=== PATIENT | female | born 1955 | race Caucasian/White ===

== ENCOUNTER → 2022-11-25 15:06 | Outpatient (CLI) | payer MEDICARE, SELFPAY ==
--- NOTE | ~2022-11-25 | MR_ITS ---
EXAMINATION: MR lumbar spine wo con DATE: 11/25/2022 15:48 INDICATION: Low back pain. Lumbar spondylosis. TECHNIQUE: Magnetic resonance imaging (MRI) of the lumbar spine was performed without intravenous con trast. Sequences included sagittal T2-weighted FSE, sagittal T2-weighted FS FSE, sagittal T1-weighted FSE, and axial T2-weighted FSE. COMPARISON: Lumbar spine MRI 05/09/2018 FINDINGS: There is 3 mm retrolisthesis of L3 on L4 and 4 mm anterolisthesis of L4 on L5. Vertebral klarissa dy heights are normal. There is severely decreased disc at L3-L4, mildly decreased disc height at L4- L5, and severely decreased disc height at L5-S1. The distal spinal cord signal intensity is normal. T he conus medullaris is at T12. The following disc levels are specifically discussed: L1-L2: There is a central protrusion. There is mild bilateral facet joint osteoarthritis. There is no neural foraminal stenosis. There is mild central canal stenosis. L2-L3: The disc is bulging. There is mild right and moderate left facet joint osteoarthritis. There i s mild bilateral neural foraminal stenosis. There is mild central canal stenosis. L3-L4: The disc is bulging. There is severe right and moderate left facet joint osteoarthritis. There is moderate right and mild left neural foraminal stenosis. There is mild central canal stenosis. L4-L5: The disc is bulging and has an annular fissure. There is severe bilateral facet joint osteoart hritis. There is mild bilateral neural foraminal stenosis. There is mild central canal stenosis. L5-S1: The disc is bulging and has an annular fissure. There is severe bilateral facet joint osteoart hritis. There is mild bilateral neural foraminal stenosis. There is mild central canal stenosis. IMPRESSION: 1. Severe lumbar spondylosis, worsened from 05/09/2018. Reviewed, dictated and finalized at location A.
== END ==
PROVIDERS: PCP Family Medicine; Visit Provider Nurse Practitioner Adult Health
DX: M47.816 Spondylosis without myelopathy or radiculopathy, lumbar region (principal)
CPT/HCPCS: 72148

== ENCOUNTER 2024-12-05 11:00 | Outpatient (RCR) | payer MEDICARE, SELFPAY ==
--- NOTE | 2024-09-06 17:32 | PTOPEVAL1 ---
Assessment and note entered by Miriam Rosas, PT Evaluation Information Assessment Status Evaluation Diagnosis low back pain unspec, right sided sciatica ICD-10 Condition Codes (PT) Difficulty Walking R26.2,Abnormalities of gait and mobility R26.9,Weakness R53.1,Encounter for other orthopedic aftercare Z47.89 Subjective Information Has gone to chiropractor for years for her back and neck. 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 Has had to use a cane since her gluteus surgery. States sitting too long there is a certain area of the back that is bothersome and in another chair other areas. [employer] put her on naproxen from meloxicam which was on for years due to arthritis. Has had shots in her back from multiple practitioners with most recent being two years ago from neuro surgeon. Pt reports afternoon after saw her primary, noticed a little tingling RLE but hasn't had it return since. Pt reports has pain in the back but goes down into hip. States will burn and hurt where she pushes on it. Can walk/stand an hour or so before having to sit. Reported Pain Level Pain Score 1: Self Report Assessment PT Clinical Summary Pt presents with low back pain and right sided sciatica. She has significant MRI findings throughout lumbar spine for degenerative changes and disc bulges among other findings. Pt also has had significant surgical intervention of the right gluteal complex within the last three years greatly effecting her strength and thus support of lumbar spine. She also reports leg length discrepancy but has not address with heel lifts or shoe alterations, and demonstrates possible pelvic alignment deficit wiht upslip as well today . Pt will greatly benefit from therapy to address deficits, improve pain and function within realistic expectations. Plan of Care Interventions Electrical Stimulation,Gait Training,Hot Pack/Cold Pack,Manual Therapy,Neuro Re-education,Patient/ Caregiver Education,Prosthetic Training, Therapeutic Activities,Therapeutic Exercise,Self- Care/Home Management,Ultrasound,Other Other Interventions Taping, bracing PT Services Indicated Yes Treatment Frequency and 2x weekly x 20 visits Duration These treatments will address the objective and functional deficits as defined above. The patient will be advanced safely and appropriately in order for the patient to progress towards his/her prior level of function. Additional exercises will be introduced and as well as a comprehensive home exercise program upon discharge, if needed, ?to ensure carryover of functional gains achieved in the clinic. This treatment plan has been reviewed and agreement upon by the patient.
--- NOTE | 2024-09-06 17:32 | OPREHPOC ---
Outpatient Therapy Plan of Care This is a Multidisciplinary Plan of Care that may contain components documented by all disciplines (PT, OT, and ST.) PT Problem 1 PT Problem #1 Knowledge Deficit PT Goal 1 Goal / Goal Update Pt will be independent in HEP Pt will verbalize understanding of diagnosis and prognosis Target Visit 10 PT Problem 2 PT Problem #2 Pain PT Goal 1 Goal / Goal Update Pt will report lowest pain rating at 0/10 to show improvement in overall discomfort Target Visit 10 PT Goal 2 Goal / Goal Update Pt will report greatest pain level at 4/10 or less to improve ADLs and activities Target Visit 20 PT Problem 3 PT Problem #3 Impaired Strength PT Goal 1 Goal / Goal Update Pt will demonstrate gluteus kimberli and medius strength RLE of 3/5 without compensatory mechanisms Target Visit 10 PT Goal 2 Goal / Goal Update Pt will demonstrate 3+/5 gluteus medius and kimberli strength to improve overal hip and lumbopelvic stability Target Visit 20
--- NOTE | 2024-10-20 08:32 | PTOPPROG ---
Assessment and note entered by Miriam Rosas, PT Evaluation Information Assessment Status Progress Diagnosis low back pain unspec, right sided sciatica ICD-10 Condition Codes (PT) Difficulty Walking R26.2,Abnormalities of gait and mobility R26.9,Weakness R53.1,Encounter for other orthopedic aftercare Z47.89 Subjective Information Pt reports is not having a good day for her back today though the pain is higher than usual. Pt reports was standing, bending, and twisting all morning doing her mother's hair and hasn't been able to sit and relax. Has been doing more yard work which aggravates her back. But the pain comes and goes. Taking Naproxen for arthritis Sitting long periods may be slightly better. Recliner is comfortable but thinks this sinking into it. Pt reports may feel slightly better. but right now when is hurting is difficult to say, but feels the pain may not be as often. Verbalizes feelingburnt out with all her exercise regiment activities. States she does her HEP some Pt reports in the past has seen multiple pain management specialists with little relief. Has seen neuro surgery and does not want to pursue surgery at this time. Has a back brace from her chiropractor but feels was not helpful Assessment PT Clinical Summary Pt has attended therapy consistently for back and right hip pain. Pt has had minimal progress thus far both subjective and objectively, with her lumbar ROM increasing from 75% to WNL. She has an extensive history of back issues and has been to pain management multiple times and consulted with surgeon though she doesn't want to go that route. 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 Pt also reports has tried back braces from chiropractic but these did not give relief either. She reports she is getting her exercises done some and also reports feeling burnt out with all her fitness activities. She does aquatic aerobics outside of therapy sessions. Discussed with patient and she has not tried aquatic physical therapy for strengthening and gravitational lumbar traction (as she is unable to participate in mechanical traction). Thus the plan is to pivot to aquatic therapy at the [facility] with the focus of lumbar distraction, core strengthening, and high focus on gluteus medius activation and weight bearing in decreased weighted environment. Plan of Care Interventions Aquatic Therapy,Electrical Stimulation,Gait Training,Hot Pack/Cold Pack,Manual Therapy,Neuro Re-education,Patient/Caregiver Education, Prosthetic Training,Therapeutic Activities, Therapeutic Exercise,Self-Care/Home Management, Ultrasound,Other Other Interventions Taping, bracing PT Services Indicated Yes Treatment Frequency and 1-2x weekly x 10 visits Duration These treatments will address the objective and functional deficits as defined above. The patient will be advanced safely and appropriately in order for the patient to progress towards his/her prior level of function. Additional exercises will be introduced and as well as a comprehensive home exercise program upon discharge, if needed, ?to ensure carryover of functional gains achieved in the clinic. This treatment plan has been reviewed and agreement upon by the patient.
--- NOTE | 2024-12-07 08:13 | PCPTNOTE ---
This treatment is being continued on visit number [id number] Please see documentation on both accounts to view progress. Completed interventions, outcomes, and problems have been marked as Inactive to facilitate the copying of the Care plan routine for recurring accounts.
== END 2024-12-05 23:59 | disposition home or self-care (01) ==
LOC: ANHPT 11:00
PROVIDERS: PCP Physician Assistant Medical; Visit Provider Physician Assistant Medical
DX: M54.50 Low back pain, unspecified (principal); M54.31 Sciatica, right side
CPT/HCPCS: 97014; 97110; 97112; 97113; 97140; 97163; 97530; 97750; G0283

== ENCOUNTER 2024-12-19 10:15 | Outpatient (RCR) | payer MEDICARE, SELFPAY ==
--- NOTE | 2024-12-07 08:11 | PCPTNOTE ---
This treatment is being continued from visit number [id number]. Please see documentation on both accounts to view progress. Completed interventions, outcomes, and problems have been marked as Inactive to facilitate the copying of the Care plan routine for recurring accounts.
--- NOTE | 2024-12-07 08:12 | OPREHPOC ---
Outpatient Therapy Plan of Care This is a Multidisciplinary Plan of Care that may contain components documented by all disciplines (PT, OT, and ST.) PT Problem 1 PT Problem #1 Knowledge Deficit PT Goal 1 Goal / Goal Update Pt will be independent in HEP Pt will verbalize understanding of diagnosis and prognosis Target Visit 10 Progress Partially Met PT Problem 2 PT Problem #2 Pain PT Goal 1 Goal / Goal Update Pt will report lowest pain rating at 0/10 to show improvement in overall discomfort Target Visit 10 Progress Not Met PT Goal 2 Goal / Goal Update Pt will report greatest pain level at 4/10 or less to improve ADLs and activities - progressed from 11/30 to 6/10 Target Visit 20 Progress Partially Met PT Problem 3 PT Problem #3 Impaired Strength PT Goal 1 Goal / Goal Update Pt will demonstrate gluteus kimberli and medius strength RLE of 3/5 without compensatory mechanisms - progressed half a muscle grade Target Visit 10 Progress Partially Met PT Goal 2 Goal / Goal Update Pt will demonstrate 3+/5 gluteus medius and kimberli strength to improve overal hip and lumbopelvic stability Target Visit 20
--- NOTE | 2024-12-20 16:53 | PTOPPROG ---
Assessment and note entered by Miriam Rosas, PT Evaluation Information Assessment Status Discharge Diagnosis low back pain unspec, right sided sciatica ICD-10 Condition Codes (PT) Difficulty Walking R26.2,Abnormalities of gait and mobility R26.9,Weakness R53.1,Encounter for other orthopedic aftercare Z47.89 Subjective Information Pt report she liked aquatics but didn't see any improvement in her back pain or sciatic pain. Pt reports maybe had some improvements in function . Can maybe work a little longer in the yard. States her exercise list keeps getting longer. Sitting long periods is doing pretty good. Getting up after long periods has to stretch a little then move around to get back in place Reports in aquatics compensatory muscles were still kicking in and wasn't able to isolate any better Assessment PT Clinical Summary Pt presents for reevaluation of sciatica, low back pain, and walking difficulty. she had a gluteus medius transfer surgery ~ 3 years ago then had to have a revision of this. She also has significant low back arthritis. She has tried braces, pain management, PT and aquatic therapy without success . Her pain numbers remain the same as when she began ranging from 2-6/10 depending on her activity. She does report maybe able to do a little more outside before resting but otherwise no significant notices in change. Testing shows improved gait with increased speed and distance, less Trendelenburg gait wiht fatigue, though still requires cane for ambulation. She reported prior to aquatic therapy feeling burnt out with all her exercises and regiments. Reported today her exercise list just keeps getting longer. Today we decreased her exercises, categorized into as needed, daily, and making habitual activity to reduce strain. Also educated her recreational fitness can take place of some exercises so she is active daily though not requiring two work outs a day. She appears to have met maximal benefit for therapy at this time. Educated on returning to therapy in the future as needed for tune up or if she feels she has mastered her current independent program and requires assist to progress. Thus patient is being discharged from services. Plan of Care Interventions Aquatic Therapy,Electrical Stimulation,Gait Training,Hot Pack/Cold Pack,Manual Therapy,Neuro Re-education,Patient/Caregiver Education, Prosthetic Training,Therapeutic Activities, Therapeutic Exercise,Self-Care/Home Management, Ultrasound,Other Other Interventions Taping, bracing PT Services Indicated No Treatment Frequency and 1-2x weekly x 10 visits Duration These treatments will address the objective and functional deficits as defined above. The patient will be advanced safely and appropriately in order for the patient to progress towards his/her prior level of function. Additional exercises will be introduced and as well as a comprehensive home exercise program upon discharge, if needed, ?to ensure carryover of functional gains achieved in the clinic. This treatment plan has been reviewed and agreement upon by the patient.
== END 2024-12-21 08:30 | disposition home or self-care (01) ==
LOC: ANHHIPT 10:15
PROVIDERS: PCP Physician Assistant Medical; Visit Provider Physician Assistant Medical
DX: M54.50 Low back pain, unspecified (principal); M54.31 Sciatica, right side
CPT/HCPCS: 97110; 97113; 97530; 97750